=== PATIENT | female | born 1995 | race African-American/Black ===

== ENCOUNTER → 2019-12-06 | Outpatient (CLI) | payer OTHER ==
[2019-12-06 09:35] LABS: COVID AG,FIA SOURCE NASOPHARYNGEAL
== END | disposition home or self-care (01) ==
LOC: LABMN 09:22
DX: Z20.828 Contact with and (suspected) exposure to other viral communicable diseases (principal)
CPT/HCPCS: 87426; U0003

== ENCOUNTER 2020-01-23 19:13 | Emergency (ER) | payer OTHER ==
[~2020-01-23] VITALS: Ht 165.1 cm; Wt 72.7 kg
[2020-01-23 20:25] VITALS: BP 120/80
[2020-01-25 08:07] LABS: HIV 1-2 SCREEN 4TH GEN W/RFLX Non Reactive (Non Reactive)
== END 2020-01-23 20:25 | disposition home or self-care (01) ==
LOC: EMS 19:15
DX: Z77.21 Contact with and (suspected) exposure to potentially hazardous body fluids (principal)
CPT/HCPCS: 80074; 87389